=== PATIENT | male | born 1940 ===

== ENCOUNTER → 2017-05-28 | Outpatient (REF) | payer MEDICARE | LOC: M LAB REF 12:28 | DX: C44.320 Squamous cell carcinoma of skin of unspecified parts of face (principal) ==

== ENCOUNTER → 2018-03-12 | Outpatient (REF) | payer MEDICARE, BC | LOC: M LAB REF 14:37 | DX: C44.329 Squamous cell carcinoma of skin of other parts of face (principal); C44.729 Squamous cell carcinoma of skin of left lower limb, including hip | CPT/HCPCS: 88305 ==

== ENCOUNTER → 2020-03-17 | Outpatient (REF) | LOC: M LABCFH 10:05 | PROVIDERS: ATTEND Internal Medicine | DX: L98.9 Disorder of the skin and subcutaneous tissue, unspecified (principal) ==

== ENCOUNTER 2023-02-01 14:19 | Inpatient (IN) | payer MEDICARE, BC ==
[~2023-02-01] VITALS: Ht 180.3 cm; Wt 89.6 kg
[2023-02-01 17:13] VITALS: BP 166/80
[2023-02-01] MEDS ORDERED: LACTULOSE 20GM/30ML SYRUP UDC PO ONE (18:05)
[2023-02-01] MEDS ORDERED: ACETAMINOPHEN TAB 650MG DOSE (2X325MG) PO PRN (18:15)
[2023-02-01] MEDS ORDERED: HEPARIN SOD (PORCINE) 5000UNITS/ML 1ML VIAL/SYRINGE SQ SCH (18:15)
[2023-02-01] MEDS ORDERED: traMADol 50 MG TAB PO PRN (18:15)
[2023-02-01] MEDS: NS 1,000 ML IV SCH (18:41)
[2023-02-01 18:58] LABS: HEMATOCRIT 33.1 % (42.0-52.0); MEAN CORPUSCULAR HEMOGLOBIN 31.2 pg (27.0-33.0); MEAN CORPUSCULAR HGB CONC 33.2 g/dl (32.0-36.5); MEAN CORPUSCULAR VOLUME 93.8 fl (80.0-96.0); PLATELET COUNT, AUTOMATED 166 10^3/uL (150-450); RED BLOOD COUNT 3.53 10^6/uL (4.30-6.10); WHITE BLOOD COUNT 16.9 10^3/uL (4.0-10.0)
[2023-02-01] MEDS ORDERED: MIDO2.5T PO (19:02)
[2023-02-01] MEDS ORDERED: TAMS1CAP17 PO (19:02)
[2023-02-01] MEDS ORDERED: MIDO5TA PO (19:02)
[2023-02-01] MEDS ORDERED: ATOR80TA59 PO ×2 (19:02)
[2023-02-01] MEDS ORDERED: ONDA-83 PO (19:02)
[2023-02-01] MEDS ORDERED: METO1TAB87 PO (19:02)
[2023-02-01] MEDS ORDERED: AMIO200T49 PO (19:02)
[2023-02-01] MEDS ORDERED: BUPR300T92 PO (19:02)
[2023-02-01] MEDS ORDERED: SENN-186 PO (19:02)
[2023-02-01] MEDS ORDERED: KETO2SHA8 TOP (19:02)
[2023-02-01] MEDS ORDERED: PANT40TA29 PO (19:02)
[2023-02-01] MEDS ORDERED: VITA500C24 PO (19:06)
[2023-02-01] MEDS ORDERED: D3 H10002 PO (19:06)
[2023-02-01] MEDS ORDERED: ASPI81CH33 PO (19:06)
[2023-02-01 19:09] LABS: INR 1.18; PROTHROMBIN TIME 15.2 SECONDS (12.5-14.5)
[2023-02-01 19:10] LABS: PARTIAL THROMBOPLASTIN TIME 29.2 SECONDS (24.8-34.2)
[2023-02-01] MEDS ORDERED: HOME MED LIST COMPLETE! XX SCH (19:10)
[2023-02-01 19:18] LABS: ALKALINE PHOSPHATASE 49 U/L (46-116); ALT/SGPT 14 U/L (7.0-40); AST/SGOT 18 U/L (<34); BILIRUBIN,TOTAL 0.7 MG/DL (0.3-1.2); BLOOD UREA NITROGEN 41 MG/DL (9-23); CALCIUM LEVEL 7.9 MG/DL (8.3-10.6); CARBON DIOXIDE LEVEL 23 MMOL/L (20-31); CHLORIDE LEVEL 107 MMOL/L (98-107); GLOMERULAR FILTRATION RATE > 60.0 (>35); GLUCOSE, FASTING 100 MG/DL (74-106); POTASSIUM SERUM 3.3 MMOL/L (3.5-5.1); SODIUM LEVEL 140 MMOL/L (136-145); TOTAL PROTEIN 5.6 G/DL (5.7-8.2)
[2023-02-01] MEDS ORDERED: ONDANSETRON 4MG TAB PO PRN (19:20)
[2023-02-01] MEDS ORDERED: POTASSIUM CHLORIDE 10MEQ SR TABLET PO ONE (19:45)
[2023-02-01] MEDS ORDERED: BUPR15TASR PO (19:52)
[2023-02-01 19:58] VITALS: BP 151/69
[2023-02-01] MEDS: SENNA 8.6 MG TAB (SENOKOT) PO SCH (20:44)
[2023-02-01] MEDS: CIPROFLOXACIN 400 MG in IV 1 EA IV SCH (20:44)
[2023-02-01] MEDS: DOCUSATE SODIUM 100MG CAPSULE PO SCH (20:45)
[2023-02-01] MEDS: ATORVASTATIN 20 MG TAB PO SCH (20:45)
[2023-02-01] MEDS ORDERED: MIDODRINE 2.5 MG TAB PO SCH (21:00)
[2023-02-01] MEDS: buPROPion **SR TABLET** (ZYBAN) 150MG PO SCH (22:02)
[2023-02-01] MEDS: metroNIDAZOLE 500 MG in IV 1 EA IV SCH (22:02)
[2023-02-02] VITALS (7 sets, daily range): BP systolic 114–162; BP diastolic 56–80
[2023-02-02 05:40] LABS: HEMATOCRIT 29.7 % (42.0-52.0); MEAN CORPUSCULAR HEMOGLOBIN 31.8 pg (27.0-33.0); MEAN CORPUSCULAR HGB CONC 33.7 g/dl (32.0-36.5); MEAN CORPUSCULAR VOLUME 94.6 fl (80.0-96.0); PLATELET COUNT, AUTOMATED 142 10^3/uL (150-450); RED BLOOD COUNT 3.14 10^6/uL (4.30-6.10); WHITE BLOOD COUNT 14.7 10^3/uL (4.0-10.0)
[2023-02-02] MEDS: metroNIDAZOLE 500 MG in IV 1 EA IV SCH (06:13)
[2023-02-02] MEDS: NS 1,000 ML IV SCH (06:13)
[2023-02-02 07:01] LABS: ALBUMIN 2.6 G/DL (3.2-5.2); ALKALINE PHOSPHATASE 42 U/L (46-116); ALT/SGPT 14 U/L (7.0-40); AST/SGOT 18 U/L (<34); BILIRUBIN,TOTAL 0.8 MG/DL (0.3-1.2); BLOOD UREA NITROGEN 32 MG/DL (9-23); CALCIUM LEVEL 7.6 MG/DL (8.3-10.6); CARBON DIOXIDE LEVEL 25 MMOL/L (20-31); CHLORIDE LEVEL 111 MMOL/L (98-107); CREATININE FOR GFR 1.05 MG/DL (0.70-1.30); GLOMERULAR FILTRATION RATE > 60.0 (>35); GLUCOSE, FASTING 93 MG/DL (74-106); POTASSIUM SERUM 3.6 MMOL/L (3.5-5.1); SODIUM LEVEL 142 MMOL/L (136-145); TOTAL PROTEIN 4.9 G/DL (5.7-8.2)
[2023-02-02] MEDS ORDERED: MIDODRINE 5 MG TAB PO SCH (08:00)
[2023-02-02] MEDS ORDERED: PILL CUTTER 1 EACH XX ONE (08:38)
[2023-02-02] MEDS: buPROPion **SR TABLET** (ZYBAN) 150MG PO SCH ×2 (08:39→20:01)
[2023-02-02] MEDS: ASPIRIN 81MG CHEW TABLET PO SCH (08:39)
[2023-02-02] MEDS: TAMSULOSIN 0.4 MG CAP PO SCH (08:40)
[2023-02-02] MEDS: AMIODARONE 200 MG TAB (PACERONE) PO SCH (08:40)
[2023-02-02] MEDS: METOPROLOL TART 25 MG TABLET PO SCH (08:40)
[2023-02-02] MEDS: PANTOPRAZOLE 40MG TAB (PROTONIX) PO SCH (08:40)
[2023-02-02] MEDS: CIPROFLOXACIN 400 MG in IV 1 EA IV SCH (08:40)
[2023-02-02] MEDS: DOCUSATE SODIUM 100MG CAPSULE PO SCH ×2 (09:00→20:01)
[2023-02-02] MEDS: MIDODRINE 2.5 MG TAB PO SCH ×2 (12:26→17:31)
[2023-02-02] MEDS: metroNIDAZOLE (FLAGYL) 500MG TABLET PO SCH ×2 (14:25→21:02)
[2023-02-02] MEDS: CIPROFLOXACIN 500MG TABLET PO SCH (17:31)
[2023-02-02] MEDS: ATORVASTATIN 20 MG TAB PO SCH (20:01)
[2023-02-02] MEDS: SENNA 8.6 MG TAB (SENOKOT) PO SCH (20:01)
[2023-02-03 03:51] VITALS: BP 135/65
[2023-02-03] MEDS: metroNIDAZOLE (FLAGYL) 500MG TABLET PO SCH (05:11)
[2023-02-03] MEDS: CIPROFLOXACIN 500MG TABLET PO SCH (05:11)
[2023-02-03 05:39] LABS: HEMATOCRIT 28.1 % (42.0-52.0); HEMOGLOBIN 9.1 g/dl (13.5-17.5); MEAN CORPUSCULAR HEMOGLOBIN 30.8 pg (27.0-33.0); MEAN CORPUSCULAR HGB CONC 32.4 g/dl (32.0-36.5); MEAN CORPUSCULAR VOLUME 95.3 fl (80.0-96.0); PLATELET COUNT, AUTOMATED 130 10^3/uL (150-450); RED BLOOD COUNT 2.95 10^6/uL (4.30-6.10); WHITE BLOOD COUNT 10.6 10^3/uL (4.0-10.0)
[2023-02-03 06:11] LABS: ALBUMIN 2.4 G/DL (3.2-5.2); ALKALINE PHOSPHATASE 47 U/L (46-116); ALT/SGPT 13 U/L (7.0-40); AST/SGOT 19 U/L (<34); BILIRUBIN,TOTAL 0.5 MG/DL (0.3-1.2); BLOOD UREA NITROGEN 28 MG/DL (9-23); CALCIUM LEVEL 7.8 MG/DL (8.3-10.6); CARBON DIOXIDE LEVEL 25 MMOL/L (20-31); CHLORIDE LEVEL 110 MMOL/L (98-107); CREATININE FOR GFR 0.93 MG/DL (0.70-1.30); GLOMERULAR FILTRATION RATE > 60.0 (>35); GLUCOSE, FASTING 87 MG/DL (74-106); POTASSIUM SERUM 3.6 MMOL/L (3.5-5.1); SODIUM LEVEL 142 MMOL/L (136-145); TOTAL PROTEIN 4.6 G/DL (5.7-8.2)
[2023-02-03] MEDS ORDERED: SENN18TA PO (07:26)
[2023-02-03] MEDS ORDERED: CIPR-249 PO (07:26)
[2023-02-03] MEDS ORDERED: MIDO2.5T PO (07:26)
[2023-02-03] MEDS ORDERED: COLA100C5 PO (07:26)
[2023-02-03] MEDS ORDERED: METR-265 PO (07:26)
[2023-02-03] MEDS ORDERED: PROB250C PO (07:26)
[2023-02-03 08:45] VITALS: BP 100/58
[2023-02-03 09:00] VITALS: BP 100/58
[2023-02-03] MEDS: METOPROLOL TART 25 MG TABLET PO SCH (09:00)
[2023-02-03] MEDS: AMIODARONE 200 MG TAB (PACERONE) PO SCH (09:00)
[2023-02-03] MEDS: DOCUSATE SODIUM 100MG CAPSULE PO SCH (09:00)
[2023-02-03] MEDS: buPROPion **SR TABLET** (ZYBAN) 150MG PO SCH (09:29)
[2023-02-03] MEDS: MIDODRINE 2.5 MG TAB PO SCH ×3 (09:29→11:43)
[2023-02-03] MEDS: ASPIRIN 81MG CHEW TABLET PO SCH (09:29)
[2023-02-03] MEDS: TAMSULOSIN 0.4 MG CAP PO SCH (09:29)
[2023-02-03] MEDS: PANTOPRAZOLE 40MG TAB (PROTONIX) PO SCH (09:29)
[2023-02-03 11:43] VITALS: BP 148/75
== END 2023-02-03 13:16 | disposition home or self-care (01) | DRG 392 ==
LOC: M PCU 17:15
PROVIDERS: ADMIT Internal Medicine; ATTEND Internal Medicine
DX: K57.92 Diverticulitis of intestine, part unspecified, without perforation or abscess without bleeding (principal); I10 Essential (primary) hypertension; E78.5 Hyperlipidemia, unspecified; F32.A Depression, unspecified; N40.0 Benign prostatic hyperplasia without lower urinary tract symptoms; K21.9 Gastro-esophageal reflux disease without esophagitis; K52.9 Noninfective gastroenteritis and colitis, unspecified; D64.9 Anemia, unspecified; Z85.46 Personal history of malignant neoplasm of prostate; K59.00 Constipation, unspecified; H81.10 Benign paroxysmal vertigo, unspecified ear; K22.70 Barrett's esophagus without dysplasia; M54.30 Sciatica, unspecified side; R29.6 Repeated falls; I48.91 Unspecified atrial fibrillation; Z86.73 Personal history of transient ischemic attack (TIA), and cerebral infarction without residual deficits; Z98.84 Bariatric surgery status; Z85.828 Personal history of other malignant neoplasm of skin; Z88.5 Allergy status to narcotic agent; Z66 Do not resuscitate; Z79.82 Long term (current) use of aspirin; Z79.899 Other long term (current) drug therapy

== ENCOUNTER 2024-09-14 16:47 | Inpatient (IN) | payer MEDICARE, OTHER ==
[~2024-09-14 16:47] MED LIST: AMIO200T49 PO; ASPI81CH33 PO; ATOR80TA59 PO; BUPR-597 PO; BUPR15TASR PO; CIPR-249 PO; COLA100C5 PO; D3 H10002 PO; KETO2SHA8 TOP; METO1TAB87 PO; METR-265 PO; MIDO2.5T3 PO; MIDO5TA PO; ONDA-83 PO; PANT40TA29 PO; PROB250C PO; SENN-165 PO; SENN-186 PO; TAMS1CAP17 PO; VITA500C24 PO
[2024-09-14 20:07] VITALS: BP 164/86; TEMP 97.5; O2SAT 96
[2024-09-14] MEDS ORDERED: MOM 30ML SUSPENSION UDC PO PRN (20:15)
[2024-09-14] MEDS: ACETAMINOPHEN 325 MG TAB PO PRN (21:36)
[2024-09-14 21:50] LABS: HEMOGLOBIN 10.2 g/dl (13.5-17.5); MEAN CORPUSCULAR HEMOGLOBIN 31.9 pg (27.0-33.0); MEAN CORPUSCULAR VOLUME 93.8 fl (80.0-96.0); PLATELET COUNT, AUTOMATED 178 10^3/uL (150-450); WHITE BLOOD COUNT 7.3 10^3/uL (4.0-10.0)
[2024-09-14 22:07] LABS: INR 1.09; PROTHROMBIN TIME 14.5 SECONDS (12.5-14.5)
[2024-09-14] MEDS ORDERED: EZET10TA21 PO (22:19)
[2024-09-14] MEDS ORDERED: LEVO25TA5 PO (22:19)
[2024-09-14] MEDS ORDERED: ATOR40TA75 PO (22:19)
[2024-09-14] MEDS ORDERED: GNP45TAB2 PO (22:19)
[2024-09-14 22:20] LABS: ALBUMIN 3.1 G/DL (3.2-5.2); ALKALINE PHOSPHATASE 87 U/L (40-129); ALT/SGPT 15 U/L (7.0-40); AST/SGOT 16 U/L (<34); BLOOD UREA NITROGEN 23 MG/DL (9-23); CARBON DIOXIDE LEVEL 26 MMOL/L (20-31); CHLORIDE LEVEL 110 MMOL/L (98-107); CREATININE FOR GFR 1.17 MG/DL (0.70-1.30); GLOMERULAR FILTRATION RATE > 60.0 (>35); GLUCOSE, FASTING 79 MG/DL (74-106); MAGNESIUM LEVEL 2.2 MG/DL (1.8-2.4); POTASSIUM SERUM 4.1 MMOL/L (3.5-5.1); SODIUM LEVEL 141 MMOL/L (136-145); TOTAL PROTEIN 6.2 G/DL (5.7-8.2)
[2024-09-14] MEDS ORDERED: HOME MED LIST COMPLETE! XX SCH (22:20)
[2024-09-14 23:41] VITALS: BP 169/74; TEMP 97.7; O2SAT 94
[2024-09-15] VITALS (8 sets, daily range): BP systolic 162–174; BP diastolic 60–89; TEMP 97–98.6; O2SAT 92–97
[2024-09-15] MEDS: traMADol 50 MG TAB PO PRN (00:30)
[2024-09-15] MEDS: SENNA 8.6 MG TAB (SENOKOT) PO SCH (00:31)
[2024-09-15] MEDS: ASCORBIC ACID 500 MG TAB PO SCH (00:31)
[2024-09-15] MEDS: buPROPion **SR TABLET** (ZYBAN) 150MG PO SCH (01:46)
[2024-09-15] MEDS: LEVOTHYROXINE 25MCG TABLET (0.025MG) PO SCH (05:54)
[2024-09-15 06:28] LABS: HEMATOCRIT 30.5 % (42.0-52.0); HEMOGLOBIN 10.1 g/dl (13.5-17.5); MEAN CORPUSCULAR HEMOGLOBIN 31.4 pg (27.0-33.0); MEAN CORPUSCULAR HGB CONC 33.1 g/dl (32.0-36.5); MEAN CORPUSCULAR VOLUME 94.7 fl (80.0-96.0); PLATELET COUNT, AUTOMATED 175 10^3/uL (150-450); RED BLOOD COUNT 3.22 10^6/uL (4.30-6.10); WHITE BLOOD COUNT 6.5 10^3/uL (4.0-10.0)
[2024-09-15 07:07] LABS: BLOOD UREA NITROGEN 22 MG/DL (9-23); CALCIUM LEVEL 8.8 MG/DL (8.3-10.6); CARBON DIOXIDE LEVEL 26 MMOL/L (20-31); CHLORIDE LEVEL 109 MMOL/L (98-107); CREATININE FOR GFR 1.21 MG/DL (0.70-1.30); GLOMERULAR FILTRATION RATE > 60.0 (>35); GLUCOSE, FASTING 72 MG/DL (74-106); POTASSIUM SERUM 3.9 MMOL/L (3.5-5.1); SODIUM LEVEL 142 MMOL/L (136-145)
[2024-09-15] MEDS: ATORVASTATIN 20 MG TAB PO SCH (08:56)
[2024-09-15] MEDS: VITAMIN D 1,000 INTERNATIONAL UNITS TABLET PO SCH (08:56)
[2024-09-15] MEDS: FERROUS SULFATE 325MG TAB PO SCH (08:56)
[2024-09-15] MEDS: EZETIMIBE 10MG TABLET (ZETIA) PO SCH (08:56)
[2024-09-15] MEDS: AMIODARONE 100MG TABLET (PACERONE) PO SCH (08:56)
[2024-09-15] MEDS: TAMSULOSIN 0.4 MG CAP PO SCH (08:57)
[2024-09-15] MEDS: PANTOPRAZOLE 40MG TAB (PROTONIX) PO SCH (08:57)
[2024-09-15] MEDS: MIDODRINE 5 MG TAB PO SCH (09:01)
[2024-09-16] VITALS (8 sets, daily range): BP systolic 138–166; BP diastolic 78–90; TEMP 97.2–97.7; O2SAT 93–96
[2024-09-16 06:27] LABS: HEMATOCRIT 30.5 % (42.0-52.0); HEMOGLOBIN 10.3 g/dl (13.5-17.5); MEAN CORPUSCULAR HEMOGLOBIN 31.2 pg (27.0-33.0); MEAN CORPUSCULAR HGB CONC 33.8 g/dl (32.0-36.5); MEAN CORPUSCULAR VOLUME 92.4 fl (80.0-96.0); PLATELET COUNT, AUTOMATED 182 10^3/uL (150-450); WHITE BLOOD COUNT 6.7 10^3/uL (4.0-10.0)
[2024-09-16 06:52] LABS: ALBUMIN 2.9 G/DL (3.2-5.2); ALKALINE PHOSPHATASE 86 U/L (40-129); ALT/SGPT 12 U/L (7.0-40); AST/SGOT 16 U/L (<34); BILIRUBIN,TOTAL 0.8 MG/DL (0.3-1.2); BLOOD UREA NITROGEN 26 MG/DL (9-23); CALCIUM LEVEL 8.7 MG/DL (8.3-10.6); CARBON DIOXIDE LEVEL 25 MMOL/L (20-31); CHLORIDE LEVEL 106 MMOL/L (98-107); CREATININE FOR GFR 1.21 MG/DL (0.70-1.30); GLOMERULAR FILTRATION RATE > 60.0 (>35); GLUCOSE, FASTING 80 MG/DL (74-106); SODIUM LEVEL 140 MMOL/L (136-145); TOTAL PROTEIN 5.7 G/DL (5.7-8.2)
[2024-09-16] MEDS: ONDANSETRON 4MG TAB PO PRN (09:31)
[2024-09-16] MEDS ORDERED: ONDANSETRON 4MG 2ML VIAL As Ordered ONE (10:13)
[2024-09-16] MEDS ORDERED: ETOMIDATE INJ 20MG/10ML VIAL As Ordered ONE (10:13)
[2024-09-16] MEDS ORDERED: LIDOCAINE 2% 100MG/5ML SDV (FOR ANES.) As Ordered ONE (10:13)
[2024-09-16] MEDS ORDERED: ROCURONIUM BROMIDE 50MG/5ML VIAL As Ordered ONE (10:13)
[2024-09-16] MEDS ORDERED: ACETAMINOPHEN 1000MG/100ML IV BAG As Ordered ONE (10:13)
[2024-09-16] MEDS ORDERED: fentaNYL 100 MCG/2 ML INJECTION As Ordered ONE (10:19)
[2024-09-16] MEDS ORDERED: dexmedeTOMIDine (4MCG/ML)200MCG/50ML BTL (PRECEDEX) As Ordered ONE (11:17)
[2024-09-16] MEDS ORDERED: KETAMINE HCL 200MG/20ML VIAL As Ordered ONE (12:14)
[2024-09-16] MEDS: ceFAZolin 2 GM/D5W 50 ML IV BAG As Ordered ONE (12:40)
[2024-09-16] MEDS: TRANEXAMIC ACID 100 MG/ML 10ML VIAL As Ordered ONE (12:45)
[2024-09-16] MEDS: VANCOMYCIN 1000MG/20ML VIAL As Ordered ONE (13:45)
[2024-09-16] MEDS: LR 1,000 ML IV SCH (14:10)
[2024-09-16] MEDS ORDERED: fentaNYL 100 MCG/2 ML INJECTION IV PRN (14:10)
[2024-09-16] MEDS: ONDANSETRON 4MG 2ML VIAL IV PRN (14:57)
[2024-09-16] MEDS: ASPIRIN 81MG CHEW TABLET PO ONE (15:38)
[2024-09-16] MEDS: ceFAZolin SOD 2 GM in IV 1 EA IV SCH (22:15)
[2024-09-17] VITALS: BP 161/94; TEMP 97.9; O2SAT 94
[2024-09-17 04:00] VITALS: BP 150/88; TEMP 97.8; O2SAT 94
[2024-09-17 08:00] VITALS: BP 149/86; TEMP 98.4; O2SAT 94
[2024-09-17] MEDS: MIRALAX *UNIT DOSE* 17GM PACKET PO SCH (08:12)
[2024-09-17] MEDS: ASPIRIN 81MG CHEW TABLET PO SCH ×2 (08:14→20:22)
[2024-09-17 10:16] LABS: BASO % 0.1 % (0.0-1.0); EOS % 0.1 % (0.0-3.0); HEMATOCRIT 30.7 % (42.0-52.0); HEMOGLOBIN 10.6 g/dl (13.5-17.5); LYMPH # 0.7 10^3/uL (1.5-5.0); LYMPH % 6.6 % (24.0-44.0); MEAN CORPUSCULAR HEMOGLOBIN 31.9 pg (27.0-33.0); MEAN CORPUSCULAR HGB CONC 34.5 g/dl (32.0-36.5); MEAN CORPUSCULAR VOLUME 92.5 fl (80.0-96.0); MONO # 0.9 10^3/uL (0.0-0.8); MONO % 8.4 % (2.0-8.0); NEUTROPHILS # 9.2 10^3/uL (1.5-8.5); NEUTROPHILS % 84.3 % (36.0-66.0); PLATELET COUNT, AUTOMATED 182 10^3/uL (150-450); RED BLOOD COUNT 3.32 10^6/uL (4.30-6.10); WHITE BLOOD COUNT 10.9 10^3/uL (4.0-10.0)
[2024-09-17 10:47] LABS: BLOOD UREA NITROGEN 31 MG/DL (9-23); CALCIUM LEVEL 8.8 MG/DL (8.3-10.6); CARBON DIOXIDE LEVEL 24 MMOL/L (20-31); CHLORIDE LEVEL 104 MMOL/L (98-107); CREATININE FOR GFR 1.17 MG/DL (0.70-1.30); GLOMERULAR FILTRATION RATE > 60.0 (>35); GLUCOSE, FASTING 161 MG/DL (74-106); POTASSIUM SERUM 4.2 MMOL/L (3.5-5.1); SODIUM LEVEL 135 MMOL/L (136-145)
[2024-09-17 12:00] VITALS: BP 125/71; TEMP 97.7; O2SAT 92
[2024-09-17 16:00] VITALS: BP 135/74; TEMP 97.3; O2SAT 95
[2024-09-17 16:40] LABS: PROCALCITONIN 0.13 ng/ml
[2024-09-17 20:16] VITALS: BP 117/60; TEMP 97.9; O2SAT 93
[2024-09-17] MEDS: CEFDINIR 300 MG CAP (OMNICEF) PO SCH (20:27)
[2024-09-18 04:06] VITALS: BP 118/59; TEMP 97.9; O2SAT 94
[2024-09-18 06:11] LABS: BASO % 0.2 % (0.0-1.0); EOS # 0.3 10^3/uL (0.0-0.5); EOS % 3.1 % (0.0-3.0); HEMOGLOBIN 8.9 g/dl (13.5-17.5); LYMPH % 11.1 % (24.0-44.0); MEAN CORPUSCULAR HEMOGLOBIN 31.9 pg (27.0-33.0); MEAN CORPUSCULAR HGB CONC 34.2 g/dl (32.0-36.5); MEAN CORPUSCULAR VOLUME 93.2 fl (80.0-96.0); MONO # 0.9 10^3/uL (0.0-0.8); MONO % 9.7 % (2.0-8.0); NEUTROPHILS # 6.9 10^3/uL (1.5-8.5); NEUTROPHILS % 75.1 % (36.0-66.0); PLATELET COUNT, AUTOMATED 155 10^3/uL (150-450); RED BLOOD COUNT 2.79 10^6/uL (4.30-6.10); WHITE BLOOD COUNT 9.1 10^3/uL (4.0-10.0)
[2024-09-18 08:00] VITALS: BP 118/59; TEMP 97.7; O2SAT 95
[2024-09-18] MEDS: BISACODYL 10MG SUPP PR ONE (08:23)
[2024-09-18 12:00] VITALS: BP 115/59; TEMP 97.5; O2SAT 94
[2024-09-18 20:00] VITALS: BP 112/58; TEMP 97.7; O2SAT 93
[2024-09-19 04:00] VITALS: BP 127/69; TEMP 97.9; O2SAT 93
[2024-09-19] MEDS: FLEET ENEMA PR ONE (08:00)
[2024-09-19 08:15] VITALS: BP 129/68; TEMP 98.4; O2SAT 96
[2024-09-19 12:00] VITALS: BP 130/70; TEMP 97.5; O2SAT 94
[2024-09-19 16:24] VITALS: BP 131/70
[2024-09-20 04:29] VITALS: BP 140/74; TEMP 97.9; O2SAT 96
[2024-09-20 08:36] VITALS: BP 133/62
[2024-09-20 12:49] VITALS: BP 117/62
[2024-09-21 03:58] VITALS: BP 143/74; TEMP 98.2; O2SAT 95
[2024-09-22 04:47] VITALS: BP 137/70; TEMP 98.2; O2SAT 97
[2024-09-23 04:20] VITALS: BP 139/66; TEMP 97.7; O2SAT 94
[2024-09-23] MEDS ORDERED: ASPI81CH33 PO (10:17)
[2024-09-23] MEDS ORDERED: CEFD300CAP PO (10:17)
== END 2024-09-23 17:40 | disposition home health service (06) | DRG 522 ==
LOC: M PCU 20:05 → M MSPAV 09-15 18:46
PROVIDERS: ADMIT Internal Medicine; ATTEND Student in an Organized Health Care Education/Training Program
PROC: 0SRR0J9 Replacement of Right Hip Joint, Femoral Surface with Synthetic Substitute, Cemented, Open Approach (ICD-10-PCS; principal; 2024-09-16 11:00)
DX: S72.011A Unspecified intracapsular fracture of right femur, initial encounter for closed fracture (principal); Z66 Do not resuscitate; I25.10 Atherosclerotic heart disease of native coronary artery without angina pectoris; R29.6 Repeated falls; H81.10 Benign paroxysmal vertigo, unspecified ear; M54.30 Sciatica, unspecified side; I48.91 Unspecified atrial fibrillation; W19.XXXA Unspecified fall, initial encounter; Y92.9 Unspecified place or not applicable; I10 Essential (primary) hypertension; E78.5 Hyperlipidemia, unspecified; F32.A Depression, unspecified; N40.0 Benign prostatic hyperplasia without lower urinary tract symptoms; K21.9 Gastro-esophageal reflux disease without esophagitis; K22.70 Barrett's esophagus without dysplasia; Z85.828 Personal history of other malignant neoplasm of skin; I95.89 Other hypotension; Z79.82 Long term (current) use of aspirin; Z79.899 Other long term (current) drug therapy; Z88.5 Allergy status to narcotic agent; Z91.048 Other nonmedicinal substance allergy status; Z95.5 Presence of coronary angioplasty implant and graft; Z85.46 Personal history of malignant neoplasm of prostate; Z86.73 Personal history of transient ischemic attack (TIA), and cerebral infarction without residual deficits

== ENCOUNTER → 2024-09-29 | Outpatient (CLI) | payer OTHER ==
[~2024-09-29] MED LIST changes: +ATOR40TA75 PO; +CEFD300CAP PO; +EZET10TA21 PO; +GNP45TAB2 PO; +LEVO25TA5 PO
== END ==
LOC: M SOG 07:59
PROVIDERS: ATTEND Orthopaedic Surgery
DX: Z47.89 Encounter for other orthopedic aftercare (principal); Z53.9 Procedure and treatment not carried out, unspecified reason